=== PATIENT | female | born 1970 | race African-American/Black ===

== ENCOUNTER → 2016-05-18 | Outpatient (CLI) | payer MEDICARE ==
[~2016-05-18] MED LIST: AMLO10TA4 PO; LEVO50TA5 PO; METH-38 PO; OMEP20CA9 PO; OXYC-323 PO; SENN1TAB7 PO; TAPE100T3 PO; ZOLP10TA PO
[2016-05-18 12:21] LABS: ALBUMIN 3.8 g/dL (3.4-5.0); ALBUMIN/GLOBULIN RATIO 0.9 (1.0-1.7); CALCIUM 9.4 mg/dL (8.5-10.1); CREATININE 0.6 mg/dL (0.6-1.0); GFR 129.7; POTASSIUM 4.2 mmol/L (3.5-5.1); TOTAL BILIRUBIN 0.3 mg/dL (0.2-1.0); TOTAL PROTEIN 8.2 g/dL (6.4-8.2)
[2016-05-18 12:45] LABS: BASO % 1 % (0-3); EOS % 1 % (0-3); HEMATOCRIT 41.2 % (36.0-47.0); HEMOGLOBIN 13.6 g/dL (12.0-15.5); LYMPH # 2.3 x10^3/uL (1.0-4.8); LYMPH % 39 % (24-48); MEAN CORPUSCULAR HEMOGLOBIN 31 pg (25-35); MEAN CORPUSCULAR HGB CONC 33 g/dL (31-37); MEAN CORPUSCULAR VOLUME 92 fL (79-100); MONO % 8 % (0-9); NEUT % 51 % (31-73); PLATELET COUNT 269 x10^3/uL (140-400); RED BLOOD COUNT 4.47 x10^6/uL (3.50-5.40)
[2016-05-18 12:56] LABS: PROTHROMBIN TIME PATIENT 12.5 SEC (11.7-14.0)
== END | disposition home or self-care (01) ==
LOC: SURGPAT 11:05
PROVIDERS: ATTEND Neurological Surgery
DX: M54.5 Low back pain (principal)
CPT/HCPCS: 36415; 80053; 85027; 85610; 85730; 87641

== ENCOUNTER 2016-05-23 06:57 | Day surgery (SDC) | payer MEDICARE ==
[~2016-05-23 06:57] MED LIST changes: +BACITRACIN 50,000 UNIT in IV NORMAL SALINE 1000ML BAG 1,000 ML IRR ONE; +CEFAZOLIN 2GM PREMIX 50 ML IV PRN; -METH-38 PO; -OXYC-323 PO; -SENN1TAB7 PO
[2016-05-23] MEDS ORDERED: LIDOCAINE 1% 1 ML SYRINGE. ID PRN (07:00)
[2016-05-23] MEDS ORDERED: ONDANSETRON PF 4 MG/2 ML VIAL. IV PRN (07:00)
[2016-05-23] MEDS ORDERED: FENTANYL PF 100 MCG/2 ML VIAL. IV PRN (07:00)
[2016-05-23] MEDS ORDERED: IV RINGERS,LACTATED 1000ML 1,000 ML IV SCH (07:00)
[2016-05-23] MEDS ORDERED: MORPHINE SULFATE 2 MG/ML DISP.SYRIN. IV PRN (07:00)
[2016-05-23] MEDS ORDERED: PROCHLORPERAZINE 10 MG/2 ML VIAL. IV PRN (07:00)
[2016-05-23] MEDS ORDERED: HYDROMORPHONE 2 MG/ML VIAL. IV PRN (07:00)
[2016-05-23] MEDS ORDERED: BUPIVACAINE MPF 0.5% 30 ML VIAL. ONE (07:12)
[2016-05-23] MEDS ORDERED: LIDOCAINE 1%/EPI 1:100,000 20 ML VIAL. ONE (07:12)
[2016-05-23] MEDS ORDERED: THROMBIN 20,000 UNIT SPRAY.SYRN KIT TP ONE (07:12)
[2016-05-23] MEDS ORDERED: GELATIN SPONGE SIZE 100. ONE (07:12)
[2016-05-23] MEDS ORDERED: HYDROCORTISONE SOD SUCC/PF 100 MG/2 ML VIAL. ONE (08:09)
[2016-05-23] MEDS ORDERED: MIDAZOLAM HCL/PF 2 MG/2 ML VIAL. ONE (08:11)
[2016-05-23] MEDS ORDERED: GLYCOPYRROLATE 1 MG/5 ML VIAL. ONE (08:12)
[2016-05-23] MEDS ORDERED: REMIFENTANIL 2 MG VIAL. IV ONE (08:12)
[2016-05-23] MEDS ORDERED: ONDANSETRON PF 4 MG/2 ML VIAL. ONE (08:16)
[2016-05-23] MEDS ORDERED: PROPOFOL 50 ML IV ONE ×2 (08:16→10:02)
[2016-05-23] MEDS ORDERED: DEXAMETHASONE SOD PHOS 20 MG/5 ML VIAL. ONE (08:16)
[2016-05-23] MEDS ORDERED: PHENYLEPHRINE 10 MG/ML VIAL. ONE ×2 (08:16→10:15)
[2016-05-23] MEDS ORDERED: ROCURONIUM 50 MG/5 ML VIAL. ONE (08:16)
[2016-05-23] MEDS ORDERED: ISOFLURANE > 120 MINUTES. IH ONE (08:16)
[2016-05-23] MEDS ORDERED: LIDOCAINE 2% 100 MG/5 ML SYRINGE. ONE (08:16)
[2016-05-23] MEDS ORDERED: PROPOFOL 20 ML IV ONE (08:16)
[2016-05-23] MEDS ORDERED: ESMOLOL 100 MG/10 ML VIAL. IV ONE (09:06)
[2016-05-23] MEDS ORDERED: 0.9 % SODIUM CHLORIDE 50 ML VIAL. IJ ONE (11:02)
[2016-05-23] MEDS ORDERED: REMIFENTANIL 1 MG VIAL. IV ONE (11:02)
--- NOTE | 2016-05-23 11:49 | PDOC ---
BRIEF OPERATIVE NOTE Date: May 23, 2016 Pre-Op Diagnosis lumbar disk herniation, lumbar radiculopathy Post-Op Diagnosis same Procedure Performed left L5-S1 hemilaminotomy and discectomy Surgeon Bertin Sales Representative [employer] none Anesthesia Type: General Blood Loss 25mL Specimens Obtained disk and decompression Findings prominent disk herniation L5-S1 Complications none apparent Additional Remarks neuromonitoring improved compared to baseline at completion of procedure JOYCE BORRERO MD May 23, 2016 11:49
[2016-05-23] MEDS ORDERED: FENTANYL PF 100 MCG/2 ML VIAL. ONE (11:53)
[2016-05-23] MEDS: FENTANYL PF 100 MCG/2 ML VIAL. IV PRN ×2 (12:19→12:29)
[2016-05-23] MEDS ORDERED: ACETAMINOPHEN INTRAVENOUS 100 ML IV ONE (12:30)
[2016-05-23] MEDS ORDERED: OXYCODONE/APAP 5/325 TABLET. PO ONE (13:00)
[2016-05-23 13:23] VITALS: BP 128/77
[2016-05-23] MEDS ORDERED: OXYC-323 PO (13:28)
[2016-05-23] MEDS ORDERED: METH-38 PO (13:29)
[2016-05-23] MEDS ORDERED: SENN1TAB7 PO (13:30)
--- NOTE | 2016-05-23 14:22 | OP ---
DATE OF SURGERY: 05/23/2016 SURGEON: Sonny Borrero M.D. [employer] CERT[employer]IED [employer]WORK PROFESSIONAL: None. PREOPERATIVE DIAGNOSES: Lumbosacral herniated disk with concordant radiculopathy and lumbar spondylosis. POSTOPERATIVE DIAGNOSES: Lumbosacral herniated disk with concordant radiculopathy and lumbar spondylosis. PROCEDURE: Left lumbar 5 and sacral 1 hemilaminotomy with diskectomy with intraoperative neuromonitoring, intraoperative use of microscope. ANESTHESIA: General. COMPLICATIONS: None intraprocedurally. INDICATIONS FOR THE PROCEDURE: The patient is a pleasant 45-year-old female, who has developed significant left lower extremity pain localized to disk herniation at lumbar 5 and sacral 1. She has been refractory to multiple nonsurgical treatments including therapy as well as injections by pain management. Please refer to the chart for additional details. DESCRIPTION OF PROCEDURE: After informed consent was obtained, the patient was brought to the operating room, was placed under general anesthesia. She was placed in the prone position on the Alfonso frame. All pressure points were checked and padded appropriately. Neuromonitoring was instituted and baseline potentials were obtained including somatosensory blood potentials. The lumbar region was prepped and draped in usual sterile fashion. Appropriate incision location was localized with fluoroscopy and subsequently a vertical incision centered over the region of lumbar 5 and sacral 1 was made with a 10 blade scalpel. Monopolar electrocautery was utilized to dissect the avascular midline to the spinous processes of lumbar 5 and sacral 1 and leftward across the lamina at this location. Level was verified with fluoroscopy prior to the initiation of decompression. A left hemilaminotomy was performed at lumbar 5, sacral 1 utilizing a pneumatic drill as well as a Kerrison rongeur. The underlying ligament was gently dissected away from the thecal sac with a blunt nerve hook as well as a Michele and removed with a Kerrison rongeur. The thecal sac and the adjacent nerve root were better identified. There was significant prominent annulus noted at the location of the L5 and S1 disk. The neural elements were gently retracted medially and an annulotomy was performed at the disk space at lumbar 5 and sacral 1 with an 11 blade scalpel. Disk material emerged under pressure and there was an additional disk material that was teased posterolaterally into lateral recesses with blunt nerve hook and subsequently removed with a pituitary rongeur. Additional disk material was gently teased from the center portion of the annulus after plane was developed between the anterior thecal sac and the annulus with the Michele. Additional disk material was gently teased posterolaterally in this fashion and removed with pituitary rongeur. Region was inspected with direct visualization as well as gentle palpation with a Michele and a blunt nerve hook to verify adequate decompression upon completion of the diskectomy. Once the adjacent neural elements were noted to be well decompressed utilizing these techniques, it was also noted that neuromonitoring potentials were slightly improved compared to baseline. After decompression diskectomy was complete, the wound was generously irrigated with antibiotic irrigation. Pristine hemostasis was achieved with FloSeal, cottonoids, some use of irrigation as well as some use of bipolar electrocautery. The muscles and the fascia were then reapproximated with 0 Vicryl in a simple interrupted fashion. Subcutaneous tissues reapproximated with 2-0 Vicryl in an interrupted inverted fashion. Skin was reapproximated with 4-0 Vicryl in a running subcuticular fashion. Mastisol and Steri-Strips were applied and the wound was dressed with Telfa and Tegaderm. At the end the procedure, all needle and sponge counts correct x 2. The patient was extubated in the operating room and taken to recovery in stable condition. There were no intraprocedural complications apparent. SONNY BORRERO MD DR: EMIL/alistair JOB#: [id number] / [id number]
== END 2016-05-23 14:00 | disposition home or self-care (01) ==
LOC: SURG 06:57
PROVIDERS: ATTEND Neurological Surgery
DX: M51.16 Intervertebral disc disorders with radiculopathy, lumbar region (principal); M47.26 Other spondylosis with radiculopathy, lumbar region; I10 Essential (primary) hypertension; E66.9 Obesity, unspecified; E03.9 Hypothyroidism, unspecified; Z90.710 Acquired absence of both cervix and uterus
CPT/HCPCS: 63030; 76000; J0131; J0690; J0780; J1100; J1720; J2250; J2405; J2704; J3010; J3490; J7030

== ENCOUNTER → 2016-08-31 | Outpatient (CLI) | payer MEDICARE ==
[~2016-08-31] MED LIST changes: -BACITRACIN 50,000 UNIT in IV NORMAL SALINE 1000ML BAG 1,000 ML IRR ONE; -CEFAZOLIN 2GM PREMIX 50 ML IV PRN; +GADOBUTROL 10 MMOL/10 ML VIAL IV ONE; +METH-38 PO; +OXYC-323 PO; +SENN1TAB7 PO; -TAPE100T3 PO; +TAPE100T7 PO
--- NOTE | 2016-08-31 11:49 | KCIC ---
MRI Lumbar Spine without and with contrast History: Low back pain, previous surgery May 2016, left radiculopathy, left buttock pain Technique: Multiplanar, multi sequential pre and postcontrast MR imaging was performed of the lumbar spine. Contrast: 10 cc Gadavist Comparison: None Findings: Lumbar vertebral body stature is preserved. There is mild to moderate degenerative disc disease L5-S1. There is mild L5-S1 endplate edema, no fluid in the intervertebral disc space. There is no enhancement in the central intervertebral disc spaces. Conus terminates at the inferior aspect of L2. There is no nodular enhancement of the conus or cauda equina. AP alignment is adequate. L2-L3: Neural foramina and spinal canal are adequate. L3-L4: There is moderate facet hypertrophic change. There is prominence of posterior epidural fat and mild buckling of the ligamentum flavum. Spinal canal and neural foramina are adequate. L4-L5: There is prominence of posterior epidural fat, mild buckling of the ligamentum flavum, and mild facet hypertrophic change. Spinal canal is adequate. There is a shallow protrusion in the proximal right extraforaminal region without significant impingement of the exiting right L4 nerve root. Neural foramina are overall adequate. L5-S1: There is a shallow posterior central protrusion without significant impingement of the descending S1 nerve roots. There is postsurgical defect of the far left lateral lamina and facet with associated enhancing fibrosis which extends about the exiting left L5 nerve root in the neural foramen, effacement of perineural fat about the posterior and inferior aspect of the exiting left L5 nerve root. There is no displacement descending S1 nerve roots. There is mild facet hypertrophic change bilaterally. Right neural foramen is adequate. Impression: 1. There is enhancing fibrosis at site of postsurgical defect of the far left lateral lamina and facet at L5-S1, enhancing fibrosis extending about the posterior and inferior aspect of the exiting left L5 nerve root at this level. There is no significant lumbar spinal stenosis. 2. There is [id number] degenerative disc disease at L5-S1. Mild endplate edema at this level is likely reactive/degenerative in etiology. Electronically signed by: Dakota Romero MD (08/31/2016 11:46 AM) [facility]
== END | disposition home or self-care (01) ==
LOC: KCIC MRI 10:12
PROVIDERS: ATTEND Neurological Surgery
DX: M51.37 Other intervertebral disc degeneration, lumbosacral region (principal)
CPT/HCPCS: 72158; A9585

== ENCOUNTER → 2016-10-23 | Outpatient (CLI) | payer MEDICARE ==
[~2016-10-23] MED LIST changes: +CYCL10TA2 PO; +ESTR42.53 VG; +GABA-586 PO; -GADOBUTROL 10 MMOL/10 ML VIAL IV ONE; +IOHEXOL 180 MG/ML 10 ML VIAL. ONE; +OXYC1TAB9 PO; +VALS160T3 PO; +methylPREDNISolone ACETATE 40 MG/ML VIAL. ONE; +methylPREDNISolone ACETATE 80 MG/ML VIAL. ONE
--- NOTE | 2016-10-23 19:07 | PAIN ---
DATE OF SERVICE: 10/23/2016 INITIAL CONSULTATION FOR PAIN CLINIC DATE OF SERVICE: 10/23/2016. CHIEF COMPLAINT: Low back and bilateral lower extremity pain. HISTORY OF PRESENT ILLNESS: The patient is a 45-year-old female who presents with history of pain since August of this year; she stepped off a curb and rodolfo her back when she stepped down on her right side. The patient reports she has had pain in her back since that time radiating to both bilateral lower extremities, in the posterior gluteus, posterior thighs, posterior calf, anterior thighs, medial calf, anterior calf to the feet; again, somewhat worse on the right than the left, but present bilaterally. The patient reports she had a lumbar laminectomy in May of this year and did very well with this, but the pain had been almost completely gone with only little numbness here and there, until she stepped off a curb in August. The patient reports now the pain is worse while driving the car, worse with activity, worse at night, hard to get up and change positions, shooting pain into the legs and buttocks, constant, sharp, stabbing, throbbing, shooting, radiating numbness, and changes during the day, primarily worse at night, but burning, cramping, aching as well. The patient did have a repeat MRI scan showing enhancing fibrosis at the site of post-surgical defect of the far left lateral lamina and facet at L5-S1 with enhancing fibrosis extending the posterior inferior aspect of the exiting L5 nerve root at this level, but without significant lumbar stenosis, mild to moderate degenerative disk disease at L5-S1 as well. With L4-L5 shows a shallow protrusion in the proximal right extraforaminal region without significant impingement of the exiting right L4 nerve root as well. The patient reports it awakens her from sleep about 6 times a night. She is not sleeping well at all. It significantly has inhibited her ability to walk. She has been using a cane occasionally, but does not have one with her today. The patient reports it affects her bowel and bladder control too, but no incontinence. She reports disability rate from 0-10, 10 being the worst, is at 9 with family and home responsibilities, social activity, recreation, self-care; 10 with occupation, sexual behavior and life support activities. The patient has had previous physical therapies, chiropractic treatment, exercises which she is currently doing, counseling as well. All these within the last year or right after her surgery without significant improvement. At this time, she is taking gabapentin, cyclobenzaprine as well as oxycodone, all of which do help to a moderate extent, mostly the oxycodone. The patient reports no loss of motor function, but again significant fatigability, especially in the right leg. PAST MEDICAL HISTORY: Significant for hypertension, asthma, hypothyroidism, glaucoma, arthritis, gastroesophageal reflux. PREVIOUS SURGERY: Includes laparoscopic cholecystectomy, lumbar diskectomy, hysterectomy, x 2, and bilateral carpal tunnel repair in the past. CURRENT MEDICATION LIST: Includes gabapentin, oxycodone, Ambien, levothyroxine, amlodipine, valsartan, estradiol and Flexeril. ALLERGIES: THE PATIENT IS ALLERGIC TO SULFA AND CELEBREX. FAMILY HISTORY: Significant for heart disease, thyroid disease, and cancers. SOCIAL HISTORY: The patient does not smoke, does not drink alcohol, is , lives with her spouse, lives in [place], [place] and was recently laid off secondary to her pain situation and missing work secondary to physical therapy appointments, etc. 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 REVIEW OF SYSTEMS: The patient's review of systems is positive for those items mentioned in history of present illness. All systems reviewed and otherwise negative. It is complete, full and well documented on the patient's chart. PHYSICAL EXAMINATION: VITAL SIGNS: The patient's blood pressure is 146/105, pulse 91, respirations 18, temperature 98.1 degrees Fahrenheit. Height is 5 feet 5 inches, weight is 240 pounds. GENERAL: The patient is awake, alert, oriented, appropriate, very pleasant demeanor. HEENT: Head shows normocephalic, atraumatic. Extraocular movements are intact and symmetrical. Oral cavity: Mucous membranes moist and pink. Dentition is intact. NECK: Anterior throat supple without palpable lymphadenopathy noted. Swallow reflex is symmetrical. CHEST: Normal on inspection. Breath sounds clear to auscultation bilaterally. HEART: S1 and S2 clear. ABDOMEN: Soft, nontender, nondistended. No palpable organomegaly. There is no rebound or guarding demonstrated. BACK: Spine grossly in the midline. Normal-appearing thoracic kyphosis and lumbar lordotic curvature. Lumbar paraspinous musculature is symmetrical on inspection. The patient shows a well-healed surgical scar in the midline in the lumbar distribution. Paraspinous musculature shows moderate tenderness with palpation, but only diffusely in the lower lumbar distribution as well as some in the mid distribution on the right more than left. The patient's back shows good rotational motion both laterally greater than 10 degrees right and left as well as extension greater than 10 degrees, forward flexion greater than 45 degrees without significant pain reported. The patient shows no tenderness over the sacrum or the sacroiliac regions as well as over the spinous processes on palpation. The patient's lower extremities showed deep tendon reflexes at 2+ in the patellar, 1+ tendo-calcaneus tendons, are equal. Motor exam is strong with 5/5 dorsiflexion, extension, quadriceps and hamstring flexion and are symmetrical. Peripheral pulses are 2+ posterior tibial and dorsalis pedis pulses. No peripheral edema is noted. No clubbing, no cyanosis. Lower extremities are warm and dry to touch, equal in color and appearance. Straight leg raise noted to be positive on the left at about 45 degrees, but it is decreased with knee flexion; right side is negative. Gaenslen's and Uziel's maneuvers are negative bilaterally as well. The patient is able to stand, but has some difficulty standing from a sitting position needs to hold on the arms of the chair, was walking with a normal-appearing gait; however, for a short distance in the office without significant antalgic gait or favoring the right or left lower extremity. IMPRESSION: 1. This is a 45-year-old female with a history of recent lumbar laminectomy and doing very well afterwards and then with stepping off a curb with significant pain in the back and bilateral lower extremities in a radicular fashion. 2. MRI scan of lumbar spine as noted. 3. Arthritis. 4. Hypertension. PLAN: Options were discussed with the patient including conservative medical management, physical therapy, interventional techniques and she would like to pursue interventional techniques. We discussed a caudal approach epidural steroid injection using description as well as anatomical models to describe the procedure. Risks were then discussed including, but not limited to bleeding, infection, possibility of epidural hematoma and subsequent neurological compromise, dural puncture, headaches, spinal cord and/or nerve damage, side effects of steroid medication and poor results regarding pain control. The patient understands and wishes to proceed. The patient will return to the clinic in approximately 2 weeks for followup, was counseled on return appointment, activity level and side effects to be aware of. Also discussed activity level with the patient and encouraged her to increase this as tolerated, stretching and strengthening exercises as well at home. Also, we will follow up with her primary physician regarding her blood pressure. DIAGNOSIS: Lumbar radiculopathy with lumbar degenerative disk disease and post-lumbar laminectomy syndrome. PROCEDURE: Caudal approach epidural steroid injection using C-arm fluoroscopic guidance under sterile prep and drape using local anesthetic. MEDICATIONS INJECTED: A total of 120 mg Depo-Medrol plus total of 10 mL of preservative-free normal saline and 2 mL of Isovue for contrast. CONDITION AT DISCHARGE: Stable. The patient tolerated procedure well, had no complications. ISIAH HILL MD DR: SHAYY/alistair JOB#: [id number] / [id number] SOL Ly
== END | disposition home or self-care (01) ==
LOC: PNCL 10:07
PROVIDERS: ATTEND Anesthesiology
DX: M51.16 Intervertebral disc disorders with radiculopathy, lumbar region (principal); M96.1 Postlaminectomy syndrome, not elsewhere classified; I10 Essential (primary) hypertension; J45.909 Unspecified asthma, uncomplicated; E03.9 Hypothyroidism, unspecified; K21.9 Gastro-esophageal reflux disease without esophagitis; M19.91 Primary osteoarthritis, unspecified site; H40.9 Unspecified glaucoma; Z90.710 Acquired absence of both cervix and uterus; Z88.2 Allergy status to sulfonamides; Z88.8 Allergy status to other drugs, medicaments and biological substances; Z90.49 Acquired absence of other specified parts of digestive tract
CPT/HCPCS: 62323; J1030; J1040

== ENCOUNTER → 2016-11-06 | Outpatient (CLI) | payer MEDICARE ==
--- NOTE | 2016-11-06 17:10 | PAIN ---
DATE OF SERVICE: 11/06/2016 DIAGNOSES: Lumbar radiculopathy with lumbar degenerative disk disease and post-lumbar laminectomy syndrome. HISTORY OF PRESENT ILLNESS: The patient is a 45-year-old female who returns for followup status post caudal epidural steroid injection x 1. The patient reports no significant improvement overall with her pain, still pain in the low back, mostly in the left side radiating to bilateral lower extremities, pulling and burning pain, cramping and weakness in the left foot especially. The patient reports a sharp, tight, shooting, cramping, burning, can be stabbing, severe, constant, radiating. The patient reports it is a 10 on a scale of 10 on usual and the least has been is a 9 in the last few weeks. The patient reports no new motor or sensory deficits, no new bowel or bladder incontinence or other complaints. PHYSICAL EXAMINATION: VITAL SIGNS: Today, the patient's blood pressure 154/98, pulse 71, respirations 18, temperature is 97.8 degrees Fahrenheit, height is 5 feet 5 inches, weight is 236 pounds. GENERAL: The patient is awake, alert, oriented, appropriate, very pleasant demeanor. HEENT: Head shows normocephalic, atraumatic. Extraocular movements are intact and symmetrical. Oral cavity, mucous membranes are moist and pink. Dentition is intact. NECK: Shows anterior throat supple. CHEST: Shows breath sounds clear to auscultation bilaterally. HEART: Shows S1 and S2 clear. ABDOMEN: Obese, soft, nontender, nondistended. MUSCULOSKELETAL: Back shows spine grossly in the midline. Lumbar paraspinous musculature shows symmetrical. There is a well-healed surgical scar again appreciated, with palpation shows some moderate tenderness with palpation still in the middle and lower distribution of paraspinous musculature bilaterally, diffusely without radiation, but significantly tender. No trigger points, no tenderness over the sacrum or sacroiliac regions. Lower extremities showed deep tendon reflexes at 2+ in the patellar, 1+ tendo-calcaneus tendons. Motor exam is strong with 5/5 dorsiflexion and extension. Peripheral pulses are 1+ posterior tibial. No peripheral edema is noted bilaterally. PLAN: Options were discussed with the patient and the patient's old chart was reviewed as her current medication regimen and updated. Current review of systems updated today as well. We will proceed with a second caudal approach epidural steroid injection today with fluoroscopic guidance. Risks were again discussed including, but not limited to bleeding, infection, possibility of epidural hematoma and subsequent neurological compromise, dural punctures, headaches, spinal cord and/or nerve damage, side effects of steroid medication and poor results regarding pain control. The patient understands and wishes to proceed. The patient will return to clinic in approximately 2 weeks for a followup, was counseled on return appointment, activity level and side effects to be aware of. DIAGNOSES: Lumbar radiculopathy with lumbar post-laminectomy syndrome and degenerative disk disease. PROCEDURE: Caudal approach epidural steroid injection using C-arm fluoroscopic guidance under sterile prep and drape using local anesthetic. MEDICATIONS INJECTED: Total of 120 mg Depo-Medrol plus 10 mL preservative-free normal saline and 2 mL of Isovue for contrast. CONDITION AT DISCHARGE: Stable. The patient tolerated procedure well, had no complications. ISIAH HILL MD DR: SHAYY/alistair JOB#: [id number] / [id number]
== END | disposition home or self-care (01) ==
LOC: PNCL 08:52
PROVIDERS: ATTEND Anesthesiology
DX: M51.16 Intervertebral disc disorders with radiculopathy, lumbar region (principal); M96.1 Postlaminectomy syndrome, not elsewhere classified; Z88.2 Allergy status to sulfonamides; Z88.8 Allergy status to other drugs, medicaments and biological substances
CPT/HCPCS: 62323; J1030; J1040

== ENCOUNTER → 2016-11-20 | Outpatient (CLI) | payer MEDICARE ==
--- NOTE | 2016-11-20 11:01 | PAIN ---
DATE OF SERVICE: 11/20/2016 PROGRESS NOTE FOR PAIN CLINIC DIAGNOSES: Lumbar radiculopathy with lumbar degenerative disk disease and post-lumbar laminectomy syndrome. HISTORY OF PRESENT ILLNESS: The patient is a 45-year-old female who returns for followup status post caudal approach epidural steroid injections x 2. The patient reports about 50% improvement overall for about the first one to two weeks. The patient reports that the pain has been returning, however, in the low back, little more on the left side than the right, now with some radiation to the posterior gluteus bilaterally and into the left leg, posterior thigh, posterior calf into the foot with some spasms and cramping as well. The patient reports pain is a 9 on a scale of 10 at its worst, average about 8 and at least is about 7. The patient reports is aching, sharp, dull, shooting, tight, cramping, stabbing, burning, tingling, radiating, constant, severe, unbearable but on and off. The patient reports is not present at all times, worse with standing and walking, better with lying down but awakens her from sleep occasionally. She bed and get back into bed and she is able to get back to sleep. The patient reports no new motor or sensory deficits and no new bowel or bladder incontinence or other complaints. PHYSICAL EXAMINATION: VITAL SIGNS: The patient's blood pressure 149/95, pulse 79, respirations 18, temperature is 98.0 degrees Fahrenheit, height is 5 feet 5 inches and weight is 240 pounds. GENERAL: The patient is awake, alert, oriented, appropriate and very pleasant demeanor. HEENT: Head shows normocephalic and atraumatic. Extraocular movements are intact and symmetrical. Oral cavity, mucous membranes are moist and pink. Dentition is intact. NECK: Shows anterior throat supple without palpable lymphadenopathy noted. Swallow reflex is symmetrical. CHEST: Shows normal on inspection. Breath sounds are clear to auscultation bilaterally. HEART: Shows S1 and S2 clear. ABDOMEN: Obese, soft, nontender and nondistended. No palpable organomegaly is noted. No rebound or guarding demonstrated. BACK: Shows spine grossly in the midline. Lumbar paraspinous musculature shows some moderate tenderness with palpation. Again, well healed surgical scars noted in the midline. No radiation of pain. The patient shows no tenderness over the sacrum or sacroiliac regions. The patient shows good rotation and motion of lower lumbar spine, both laterally as well as extension and flexion. EXTREMITIES: Lower extremities show deep tendon reflexes 2+ in the patellar, 1+ tendo-calcaneus tendons, are equal. Motor exam is strong with 5/5 dorsiflexion, extension, quadriceps and hamstring flexion and symmetrical. Peripheral pulses are 1+ posterior tibia. No peripheral edema is noted. Options were discussed with the patient and the patient's old chart was reviewed as her current medication regimen updated. Current review of systems updated today as well. We will hold on further injections at this time as she would like to increase her activity. She [facility] and encouraged her to increase the activity with this, which may afford some weight loss as well as strengthening and stretching exercises, which she has been doing. We will increase this for next few weeks and see how she does. If still significant pain in the low back and especially in the left lower extremity, we will have her return for a third caudal approach epidural steroid injection. The patient understands and agrees and we will increase activity as described and we will follow up as scheduled. ISIAH HILL MD DR: SHAYY/alistair JOB#: [id number] / [id number]
== END | disposition home or self-care (01) ==
LOC: PNCL 08:55
PROVIDERS: ATTEND Anesthesiology
DX: M51.16 Intervertebral disc disorders with radiculopathy, lumbar region (principal)
CPT/HCPCS: G0463; J1030; J1040

== ENCOUNTER → 2016-12-07 | Outpatient (CLI) | payer MEDICARE ==
--- NOTE | 2016-12-07 09:00 | PAIN ---
DATE OF SERVICE: 12/07/2016 DIAGNOSES: Lumbar radiculopathy with lumbar degenerative disk disease and post-lumbar laminectomy. HISTORY OF PRESENT ILLNESS: The patient is a 45-year-old female who returns for followup status post caudal epidural steroid injections x 2. The patient reports she is doing better, about 50% overall, and she is still doing some water therapy, which she feels is beneficial as well about twice a week. The patient reports still significant pain, however, in the low back, bilateral lower extremities, worse on the left than the right at this time with radiating pain, tingling, burning, cramping, stabbing, aching, sharp, dull, tight, shooting, severe, constant, radiating, becomes unbearable at times, worse with walking, standing and weightbearing, better with lying down, but does wake her from sleep about 2-3 times at night. The patient has to reposition or take pain medications to get over the pain. The patient has been taking Percocet with good results and without significant side effects. PHYSICAL EXAMINATION: VITAL SIGNS: The patient's blood pressure 150/105, pulse is 84, respirations 18, temperature 97.9 degrees Fahrenheit, height 5 feet 5 inches, weighs 241 pounds. GENERAL: The patient is awake, alert, oriented, appropriate, very pleasant demeanor. HEENT: Shows normocephalic, atraumatic. Extraocular movements are intact and symmetrical. Oral cavity shows mucous membranes are moist and pink. Dentition is intact. NECK: Shows anterior throat supple without palpable lymphadenopathy noted. Swallow reflex is symmetrical. CHEST: Shows normal on inspection. Breath sounds clear to auscultation bilaterally. HEART: Shows S1 and S2 clear. No murmurs auscultated. ABDOMEN: Soft, nontender, nondistended. No palpable organomegaly, no rebound or guarding demonstrated. BACK: Shows spine grossly midline. Lumbar, flattening of lumbar lordotic curvature with a well-healed surgical scar noted. Lumbar paraspinous musculature shows symmetrical on inspection, with palpation shows moderate tenderness only in the low lumbar distribution, only diffusely without radiation. LOWER EXTREMITIES: Showed deep tendon reflexes 2+ in the patellar, 1+ in calcaneus tendons are equal. Motor exam is 5/5 with dorsiflexion, extension, quadriceps and hamstring flexion and symmetrical. Options were discussed with the patient, and the patient's old chart was reviewed as her current medication regimen updated. Current review of systems updated today as well. We will proceed with a caudal epidural steroid injection today with fluoroscopic guidance, the third in the series. Risks were again discussed including, but not limited to bleeding, infection, possibility of epidural hematoma, subsequent neurologic compromise, dural puncture, headaches, spinal cord and/or nerve damage, side effects of steroid medication and poor results regarding pain control. The patient understands and wishes to proceed. The patient will return to clinic in approximately 2 weeks for followup, was counseled on return appointment as well as side effects to be aware of. The patient also requested a refill of her Percocet. We will refill this one additional prescription today, also change her gabapentin to Lyrica as we discussed this in the past as well and have her follow up with her primary care physician regarding any future medications as well as to recheck her blood pressure as it was elevated again today. DIAGNOSES: Lumbar radiculopathy with degenerative disk disease post-thrombotic syndrome. PROCEDURE: Caudal approach epidural steroid injection with C-arm fluoroscopic guidance under sterile prep and drape using local anesthetic. MEDICATION INJECTED: A total of 120 mg Depo-Medrol, plus 10 mL of preservative-free normal saline and 2 mL of Isovue for contrast. CONDITION AT DISCHARGE: Stable. The patient tolerated procedure well, had no complications. ISIAH HILL MD DR: SHAYY/alistair JOB#: [id number] / [id number]
== END | disposition home or self-care (01) ==
LOC: PNCL 07:49
PROVIDERS: ATTEND Anesthesiology
DX: M51.16 Intervertebral disc disorders with radiculopathy, lumbar region (principal); Z88.2 Allergy status to sulfonamides; Z88.8 Allergy status to other drugs, medicaments and biological substances
CPT/HCPCS: 62323; J1030; J1040

== ENCOUNTER → 2017-01-07 | Outpatient (CLI) | payer MEDICARE ==
[~2017-01-07] MED LIST changes: +ESTR1PAT TD; -IOHEXOL 180 MG/ML 10 ML VIAL. ONE; +OXYC10TA PO; +PREG100C PO; +PROVENTIL HFA6.7 GM IH; -methylPREDNISolone ACETATE 40 MG/ML VIAL. ONE; -methylPREDNISolone ACETATE 80 MG/ML VIAL. ONE
--- NOTE | 2017-01-07 12:39 | KCIC ---
EXAM: Lumbar spine MRI without contrast. HISTORY: Lumbar radiculopathy. TECHNIQUE: Multiplanar, multisequence magnetic resonance imaging of the lumbar spine was performed without contrast. COMPARISON: 08/31/2016 FINDINGS: There is no listhesis. The vertebral bodies are normal in height. There is degenerative endplate remodeling with disc space narrowing and disc desiccation at L5-S1. There are small endplate Schmorl's nodes at this level. There is also endplate remodeling and disc desiccation at L4-L5. No suspicious osseous lesion is seen. The conus terminates at L2. At L1-L2 and L2-L3 there is no stenosis. At L3-L4, there is endplate remodeling. There is no stenosis. At L4-L5, there is a disc bulge and endplate remodeling. There is mild bilateral facet arthropathy. There is no stenosis. At L5-S1, there is a posterior central disc protrusion and left foraminal to extra foraminal disc protrusion with 5 mm superior extrusion superimposed on a diffuse disc bulge and endplate remodeling. There is mild left foraminal stenosis with abutment of the exiting left L5 nerve root. There is effacement of the left lateral recess with deviation of the traversing left S1 nerve root. There are partial left laminectomy changes at this level. IMPRESSION: 1. L5-S1: Slight interval increase in a posterior central disc protrusion and left foraminal to extra foraminal disc protrusion with superior extrusion, resulting in mild left foraminal stenosis and abutment of the exiting left L5 nerve root and effacement of the left lateral recess with deviation of the traversing left S1 nerve root. There are partial laminectomy changes at this level. The previously demonstrated enhancing scar/granulation tissue is difficult to assess in the absence of intravenous contrast on the current exam. 2. Minimal degenerative change throughout the remainder of the lumbar spine, without significant stenosis. Electronically signed by: Demi Bonilla MD (01/07/2017 12:36 PM) [email or web address]
== END | disposition home or self-care (01) ==
LOC: KCIC MRI 11:22
PROVIDERS: ATTEND Neurological Surgery
DX: M51.16 Intervertebral disc disorders with radiculopathy, lumbar region (principal); M48.061 Spinal stenosis, lumbar region without neurogenic claudication
CPT/HCPCS: 72148

== ENCOUNTER 2017-02-20 07:01 | Observation (INO) | payer MEDICARE ==
[~2017-02-20 07:01] MED LIST changes: -AMLO10TA4 PO; -CYCL10TA2 PO; +DEXAMETHASONE SOD PHOS 20 MG/5 ML VIAL.; -ESTR1PAT TD; -ESTR42.53 VG; -GABA-586 PO; +GELATIN SPONGE SIZE 100.; +HYDROmorphone 2 MG/ML VIAL IV; -LEVO50TA5 PO; +LIDOCAINE 1% PF 2 ML VIAL. ID; +LIDOCAINE 2% PF Vial for OR 5 ML VIAL.; -METH-38 PO; -OMEP20CA9 PO; +ONDANSETRON PF 4 MG/2 ML VIAL.; +ONDANSETRON PF 4 MG/2 ML VIAL. IV; -OXYC-323 PO; -OXYC10TA PO; -OXYC1TAB9 PO; -PREG100C PO; +PROCHLORPERAZINE 10 MG/2 ML VIAL. IV; +PROPOFOL 20 ML IV; -PROVENTIL HFA6.7 GM IH; +ROCURONIUM 50 MG/5 ML VIAL.; -SENN1TAB7 PO; -TAPE100T7 PO; +THROMBIN TOPICAL 20,000 UNIT SPRAY.SYRN KIT TP; -VALS160T3 PO; -ZOLP10TA PO; +fentaNYL PF VIAL 100 MCG/2 ML VIAL IV
[2017-02-20] MEDS ORDERED: fentaNYL PF VIAL 100 MCG/2 ML VIAL ×2 (08:14)
[2017-02-20] MEDS ORDERED: ePHEDrine PF IN SALINE 50 MG/5 ML DISP.SYRIN IV (08:14)
[2017-02-20] MEDS ORDERED: REMIFENTANIL 2 MG VIAL. IV ×2 (08:14)
[2017-02-20] MEDS ORDERED: MIDAZOLAM HCL/PF 2 MG/2 ML VIAL. ×2 (08:14)
[2017-02-20] MEDS ORDERED: SUCCINYLCHOLINE 200 MG/10 ML VIAL. ×2 (08:17)
[2017-02-20] MEDS: BUPIVACAINE MPF 0.5% 30 ML VIAL. ×2 (09:28)
[2017-02-20] MEDS: BACITRACIN 50,000 UNIT in IV NORMAL SALINE 1000ML BAG 1,000 ML IRR (09:28)
[2017-02-20] MEDS: LIDOCAINE 2%/EPI 1:100,000 20 ML VIAL. ×2 (09:28)
[2017-02-20] MEDS ORDERED: NEOSTIGMINE METHYLSULFATE 5 MG/5 ML SYRINGE. ×2 (09:32)
[2017-02-20] MEDS ORDERED: GLYCOPYRROLATE 1 MG/5 ML VIAL. ×2 (09:32)
[2017-02-20] MEDS ORDERED: PHENYLEPHRINE in 0.9% NACL PF 1 MG/10 ML SYRINGE. IV (09:33)
[2017-02-20] MEDS ORDERED: PROPOFOL 50 ML IV ×2 (09:33)
[2017-02-20] MEDS ORDERED: LABETALOL 20 MG/4 ML DISP.SYRIN. ×2 (09:34)
[2017-02-20] MEDS ORDERED: DESFLURANE > 120 MINUTES IH ×2 (10:23)
[2017-02-20] MEDS ORDERED: 0.9 % SODIUM CHLORIDE 10 ML DISP.SYRIN. IV ×2 (11:45)
[2017-02-20] MEDS ORDERED: CALCIUM CARBONATE 500 MG TAB.CHEW PO ×2 (11:45)
[2017-02-20] MEDS ORDERED: NALOXONE 0.4 MG/ML VIAL. IV ×2 (11:45)
[2017-02-20] MEDS ORDERED: fentaNYL PF VIAL 100 MCG/2 ML VIAL IV ×2 (11:45)
[2017-02-20] MEDS ORDERED: diphenhydrAMINE HCL 25 MG CAPSULE PO ×2 (11:45)
[2017-02-20] MEDS ORDERED: oxyCODONE/APAP 5/325 1 TAB TABLET PO ×2 (11:45)
[2017-02-20] MEDS ORDERED: diphenhydrAMINE 50 MG/ML VIAL IV ×2 (11:45)
[2017-02-20] MEDS ORDERED: ACETAMINOPHEN 325 MG TABLET. PO ×2 (11:45)
[2017-02-20] MEDS ORDERED: MAG HYDROX/ALUMINUM HYD/SIMETH 30 ML ORAL.SUSP PO ×2 (11:45)
[2017-02-20] MEDS ORDERED: MAGNESIUM HYDROXIDE 2,400 MG/30 ML ORAL.SUSP. PO ×2 (11:45)
[2017-02-20] MEDS ORDERED: ONDANSETRON PF 4 MG/2 ML VIAL. IV ×2 (11:45)
[2017-02-20] MEDS ORDERED: ceFAZolin 2GM PREMIX 2 GM/50 ML BAG IV ×2 (12:00)
[2017-02-20] MEDS: fentaNYL PF VIAL 100 MCG/2 ML VIAL IV ×12 (12:14→20:59)
[2017-02-20] MEDS ORDERED: ALBUTEROL SULFATE 2.5 MG/3 ML NEBU. NEB ×2 (12:15)
[2017-02-20] MEDS: MORPHINE SULFATE 2 MG/ML DISP.SYRIN. IV ×8 (12:36→13:17)
[2017-02-20] MEDS: IV RINGERS,LACTATED 1000ML 1,000 ML IV ×2 (12:58)
[2017-02-20] MEDS: METHOCARBAMOL 750 MG TABLET PO ×4 (13:46→21:04)
[2017-02-20] MEDS: oxyCODONE IR 5 MG TABLET PO ×6 (13:46→22:30)
[2017-02-20] MEDS: oxyCODONE/APAP 5/325 1 TAB TABLET PO ×4 (16:17→19:49)
[2017-02-20] MEDS: CALCIUM CARB/VIT D3 500/200 TABLET. PO ×2 (17:55)
[2017-02-20] MEDS: FERROUS SULFATE 325 MG TABLET. PO ×2 (17:55)
[2017-02-20] MEDS: ESTRADIOL TD ×2 (18:00)
[2017-02-20] MEDS: LISINOPRIL 2.5 MG TABLET PO ×2 (18:26)
[2017-02-20] MEDS: cloNIDine HCL 0.1 MG TABLET PO ×2 (18:27)
[2017-02-20] MEDS: SENNOSIDES/DOCUSATE 8.6/50MG TABLET. PO ×2 (21:00)
[2017-02-20] MEDS: ZOLPIDEM 5 MG TABLET. PO ×4 (21:03→22:30)
[2017-02-20] MEDS: DOCUSATE SODIUM 100 MG CAPSULE. PO ×2 (21:04)
[2017-02-20] MEDS: PREGABALIN 50 MG CAPSULE PO ×2 (21:04)
[2017-02-21] MEDS: oxyCODONE/APAP 5/325 1 TAB TABLET PO ×4 (01:00→07:17)
[2017-02-21] MEDS: oxyCODONE IR 5 MG TABLET PO ×6 (03:57→18:20)
[2017-02-21] MEDS: LEVOTHYROXINE 25 MCG TABLET. PO ×2 (07:19)
[2017-02-21] MEDS: FERROUS SULFATE 325 MG TABLET. PO ×4 (08:52→17:24)
[2017-02-21] MEDS: SENNOSIDES/DOCUSATE 8.6/50MG TABLET. PO ×4 (08:52→21:00)
[2017-02-21] MEDS: CALCIUM CARB/VIT D3 500/200 TABLET. PO ×4 (08:52→17:24)
[2017-02-21] MEDS: PREGABALIN 50 MG CAPSULE PO ×4 (08:52→21:17)
[2017-02-21] MEDS: DOCUSATE SODIUM 100 MG CAPSULE. PO ×4 (08:52→21:16)
[2017-02-21] MEDS: amLODIPine BESYLATE 5 MG TABLET PO ×2 (08:52)
[2017-02-21] MEDS: MULTIVITAMIN with MINERAL TABLET. PO ×2 (08:53)
[2017-02-21] MEDS: LISINOPRIL 2.5 MG TABLET PO ×2 (08:53)
[2017-02-21] MEDS: LOSARTAN POTASSIUM 50 MG TABLET. PO ×2 (08:54)
[2017-02-21] MEDS: METHOCARBAMOL 750 MG TABLET PO ×6 (08:54→21:16)
[2017-02-21] MEDS ORDERED: oxyCODONE/APAP 7.5/325 1 TAB TABLET PO ×4 (11:30→11:45)
[2017-02-21] MEDS: oxyCODONE/APAP 7.5/325 1 TAB TABLET PO ×6 (11:37→21:17)
[2017-02-21 12:30] LABS: ADD MAN DIFF? NO
[2017-02-21 12:33] LABS: BASO # 0.1 x10^3/uL (0.0-0.2); BASO % 1 % (0-3); EOS % 0 % (0-3); HEMATOCRIT 38.3 % (36.0-47.0); LYMPH # 1.9 x10^3/uL (1.0-4.8); LYMPH % 13 % (24-48); MEAN CORPUSCULAR HEMOGLOBIN 31 pg (25-35); MEAN CORPUSCULAR HGB CONC 34 g/dL (31-37); MEAN CORPUSCULAR VOLUME 92 fL (79-100); MONO % 7 % (0-9); NEUT # 11.4 x10^3uL (1.8-7.7); NEUT % 79 % (31-73); PLATELET COUNT 267 x10^3/uL (140-400); RED BLOOD COUNT 4.17 x10^6/uL (3.50-5.40); RED CELL DISTRIBUTION WIDTH 13.4 % (11.5-14.5); WHITE BLOOD COUNT 14.4 x10^3/uL (4.0-11.0)
[2017-02-21 13:01] LABS: ALBUMIN 3.6 g/dL (3.4-5.0); ALBUMIN/GLOBULIN RATIO 0.9 (1.0-1.7); ALK PHOS 82 U/L (46-116); ALT (SGPT) 37 U/L (14-59); ANION GAP 10 (6-14); AST (SGOT) 22 U/L (15-37); BLOOD UREA NITROGEN 11 mg/dL (7-20); BUN/CREATININE RATIO 16 (6-20); CALCIUM 9.1 mg/dL (8.5-10.1); CARBON DIOXIDE 26 mmol/L (21-32); CHLORIDE 102 mmol/L (98-107); CREATININE 0.7 mg/dL (0.6-1.0); GFR 108.1; GLUCOSE 138 mg/dL (70-99); POTASSIUM 3.5 mmol/L (3.5-5.1); SODIUM 138 mmol/L (136-145); TOTAL BILIRUBIN 0.4 mg/dL (0.2-1.0); TOTAL PROTEIN 7.7 g/dL (6.4-8.2)
[2017-02-21 13:06] LABS: FREE T4 0.93 ng/dL (0.76-1.46)
[2017-02-21 13:33] LABS: BILIRUBIN,URINE NEGATIVE (NEG); CLARITY,URINE CLEAR; COLOR,URINE YELLOW; GLUCOSE,URINE NEGATIVE (NEG); NITRITE,URINE NEGATIVE (NEG); PROTEIN,URINE NEGATIVE (NEG-TRACE); UROBILINOGEN,URINE 0.2 mg/dL (0.2 mg/dL)
[2017-02-21 13:47] LABS: BACTERIA,URINE 0 /HPF (0-FEW); SQUAMOUS EPITHELIAL CELL,UR MOD /LPF; WBC,URINE 0 /HPF (0-4)
[2017-02-21] MEDS: cloNIDine TTS-2 1 PATCH PATCH TD ×2 (13:49)
[2017-02-21] MEDS: ZOLPIDEM 5 MG TABLET. PO ×2 (21:16)
[2017-02-22] MEDS: oxyCODONE IR 5 MG TABLET PO ×4 (00:18→12:12)
[2017-02-22] MEDS: ZOLPIDEM 5 MG TABLET. PO ×2 (00:18)
[2017-02-22] MEDS: LEVOTHYROXINE 25 MCG TABLET. PO ×2 (06:02)
[2017-02-22] MEDS: oxyCODONE/APAP 7.5/325 1 TAB TABLET PO ×6 (06:03→14:47)
[2017-02-22] MEDS: FERROUS SULFATE 325 MG TABLET. PO ×2 (08:00)
[2017-02-22] MEDS: CALCIUM CARB/VIT D3 500/200 TABLET. PO ×2 (08:00)
[2017-02-22] MEDS: METOPROLOL SUCC 24HR ER 50 MG TAB.ER.24H. PO ×2 (08:49)
[2017-02-22] MEDS: LOSARTAN POTASSIUM 50 MG TABLET. PO ×2 (08:50)
[2017-02-22] MEDS: METHOCARBAMOL 750 MG TABLET PO ×4 (08:50→13:40)
[2017-02-22] MEDS: LISINOPRIL 2.5 MG TABLET PO ×2 (08:50)
[2017-02-22] MEDS: SENNOSIDES/DOCUSATE 8.6/50MG TABLET. PO ×2 (08:50)
[2017-02-22] MEDS: MULTIVITAMIN with MINERAL TABLET. PO ×2 (08:50)
[2017-02-22] MEDS: PREGABALIN 50 MG CAPSULE PO ×2 (08:50)
[2017-02-22] MEDS: amLODIPine BESYLATE 5 MG TABLET PO ×2 (08:50)
[2017-02-22] MEDS: DOCUSATE SODIUM 100 MG CAPSULE. PO ×2 (08:50)
[2017-02-22] MEDS ORDERED: METOPROLOL SUCC 24HR ER 50 MG TAB.ER.24H. PO ×2 (09:00)
[2017-02-22 12:19] LABS: ACTH 3.3 pg/mL (7.2-63.3)
[2017-03-01 17:14] LABS: ALDOSTERONE UR RANDOM 3.07 ug/L (Not Estab.)
== END 2017-02-22 16:28 | disposition home or self-care (01) ==
LOC: SURG 07:01 → 4 SOUTHEST 11:37
DX: M54.16 Radiculopathy, lumbar region (principal); E03.9 Hypothyroidism, unspecified; E66.01 Morbid (severe) obesity due to excess calories; I10 Essential (primary) hypertension; G47.33 Obstructive sleep apnea (adult) (pediatric); J45.909 Unspecified asthma, uncomplicated; Z82.49 Family history of ischemic heart disease and other diseases of the circulatory system; Z87.11 Personal history of peptic ulcer disease
CPT/HCPCS: 36415; 76000; 80053; 81001; 82024; 82088; 84439; 85025; 88304; 96374; 96376; 97110-GP; 97116-GP; 97162-GP; 97165-GO; 97530-GP; G0378; G0379; G8978-CJ-GP; G8979-CI-GP; G8980-CI-GP; J0330; J0690; J1100; J2250; J2270; J2370; J2405; J2704; J2710; J3010; J3490; J7030; J7120

== ENCOUNTER → 2017-04-04 | Outpatient (CLI) | payer MEDICARE | END | disposition home or self-care (01) | LOC: RAD 12:01 | DX: J45.909 Unspecified asthma, uncomplicated (principal) | CPT/HCPCS: 71046 ==

== ENCOUNTER → 2017-05-14 | Outpatient (CLI) | payer MEDICARE | END | disposition home or self-care (01) | LOC: SLPLAB 18:13 | DX: G47.10 Hypersomnia, unspecified (principal); R06.83 Snoring | CPT/HCPCS: 95810 ==

== ENCOUNTER → 2017-06-19 | Outpatient (CLI) | payer MEDICARE | END | disposition home or self-care (01) | LOC: KCIC MRI 10:32 | DX: M51.17 Intervertebral disc disorders with radiculopathy, lumbosacral region (principal); M48.061 Spinal stenosis, lumbar region without neurogenic claudication | CPT/HCPCS: 72148 ==

== ENCOUNTER 2017-11-07 08:15 | Emergency (ER) | payer MEDICARE ==
[~2017-11-07] VITALS: Ht 160 cm; Wt 106.8 kg
[~2017-11-07 08:15] MED LIST changes: +ACET325T9 PO; +AMLO10TA4 PO; +CALC1TAB70 PO; +CLON1PAT2 TD; +CYCL10TA2 PO; -DEXAMETHASONE SOD PHOS 20 MG/5 ML VIAL.; +ESTR1PAT TD; +ESTR42.53 VG; +FERR325T72 PO; +GABA-586 PO; -GELATIN SPONGE SIZE 100.; -HYDROmorphone 2 MG/ML VIAL IV; +LEVO50TA5 PO; -LIDOCAINE 1% PF 2 ML VIAL. ID; -LIDOCAINE 2% PF Vial for OR 5 ML VIAL.; +LISI2.5T PO; +METH-38 PO; +METH750T2 PO; +METO50TA29 PO; +MULT1TAB90 PO; +OMEP20CA9 PO; -ONDANSETRON PF 4 MG/2 ML VIAL.; -ONDANSETRON PF 4 MG/2 ML VIAL. IV; +OXYC-323 PO; +OXYC-411 PO; +OXYC10TA PO; +OXYC1TAB7 PO; +OXYC1TAB8 PO; +PREG100C PO; -PROCHLORPERAZINE 10 MG/2 ML VIAL. IV; -PROPOFOL 20 ML IV; +PROVENTIL HFA6.7 GM IH; -ROCURONIUM 50 MG/5 ML VIAL.; +SENN-22 PO; +SENN1TAB8 PO; +TAPE100T7 PO; -THROMBIN TOPICAL 20,000 UNIT SPRAY.SYRN KIT TP; +VALS160T3 PO; +ZOLP10TA PO; -fentaNYL PF VIAL 100 MCG/2 ML VIAL IV
[2017-11-07 08:49] LABS: BASO # 0.1 x10^3/uL (0.0-0.2); BASO % 1 % (0-3); EOS # 0.1 x10^3/uL (0.0-0.7); EOS % 1 % (0-3); HEMATOCRIT 40.3 % (36.0-47.0); HEMOGLOBIN 13.9 g/dL (12.0-15.5); LYMPH # 2.2 x10^3/uL (1.0-4.8); LYMPH % 37 % (24-48); MEAN CORPUSCULAR HEMOGLOBIN 32 pg (25-35); MEAN CORPUSCULAR HGB CONC 35 g/dL (31-37); MEAN CORPUSCULAR VOLUME 92 fL (79-100); MONO # 0.5 x10^3/uL (0.0-1.1); MONO % 9 % (0-9); NEUT % 51 % (31-73); PLATELET COUNT 315 x10^3/uL (140-400); RED BLOOD COUNT 4.41 x10^6/uL (3.50-5.40); RED CELL DISTRIBUTION WIDTH 13.8 % (11.5-14.5); WHITE BLOOD COUNT 5.9 x10^3/uL (4.0-11.0)
[2017-11-07 08:52] LABS: BILIRUBIN,URINE NEGATIVE (NEG); CLARITY,URINE CLEAR; COLOR,URINE YELLOW; NITRITE,URINE NEGATIVE (NEG); PH,URINE 5.5; PROTEIN,URINE NEGATIVE (NEG-TRACE); UROBILINOGEN,URINE 0.2 mg/dL (0.2 mg/dL)
--- NOTE | 2017-11-07 08:55 | PHYS DOC ---
Past Medical History Past Medical History: Asthma, Hypertension, Hypothyroid, Other Additional Past Medical Histor: chronic low back pain Past Surgical History: Cholecystectomy, , Tonsillectomy, Other Additional Past Surgical Histo: disectomy x 2 Alcohol Use: Occasionally Drug Use: None Adult General Chief Complaint Chief Complaint: ABDOMINAL PAIN HPI HPI Patient is a 46 year old female who presents to the ER for evaluation of right lower quadrant abdominal pain. Patient reports that pain has been present for proximal Lasix 8 months. Patient reports history of chronic right low back pain with known radiculopathy with radiation to right lower extremity and right lower quadrant abdominal area. Patient has undergone multiple MRIs of her back and has had multiple back surgeries. Patient denies any acute worsening of her abdominal pain or changes. I'm unable to elicit why patient felt that she needs to be evaluated emergently this morning. Patient reports pain is constant, sharp , 9 out of 10 at rest, patient reports that pain is significantly worse with movement. Patient reports some intermittent nausea/vomiting but this is also chronic in nature and its managing this at home with Zofran prescribed by her PCP. Patient also reports some chronic diarrhea. Patient reports last BM yesterday. Patient denies any GI bleed symptoms. Patient denies any fever. Patient status post hysterectomy and cholecystectomy but still has an appendix. Review of Systems Review of Systems Constitutional: Denies fever or chills [] Eyes: Denies change in visual acuity, redness, or eye pain [] HENT: Denies nasal congestion or sore throat [] Respiratory: Denies cough or shortness of breath [] Cardiovascular: No chest pain, no lower extremity edema, no orthopnea. GI: Abdominal pain present, nausea present, intermittent vomiting present, no bloody stools : Denies dysuria or hematuria [] Musculoskeletal: Denies back pain or joint pain [] Integument: Denies rash or skin lesions [] Neurologic: Denies headache, focal weakness or sensory changes [] Endocrine: Denies polyuria or polydipsia [] All other systems were reviewed and found to be within normal limits, except as documented in this note. Current Medications Current Medications Current Medications Medications (Trade) Dose Ordered Sig/Monique Start Time Stop Time Status Last Admin Dose Admin Iohexol (Omnipaque 300 Mg/ml) 75 ml 1X ONCE 11/07/17 09:00 11/07/17 09:01 DC 11/07/17 09:26 75 ML Oxycodone HCl (Roxicodone) 10 mg 1X ONCE 11/07/17 09:00 11/07/17 09:01 DC 11/07/17 09:55 10 MG Allergies Allergies Allergies Coded Allergies Type Severity Reaction Last Updated Verified Sulfa (Sulfonamide Antibiotics) Allergy Severe Shortness of Air 11/07/17 Yes celecoxib Allergy Severe Shortness of Air 11/07/17 Yes Physical Exam Physical Exam Constitutional: Morbidly obese, no acute distress, nontoxic appearing HENT: Normocephalic, atraumatic, Eyes: PERRLA, EOMI,[] Neck: e, no stridor. [] Cardiovascular:Heart rate regular rhythm, no murmur [] Lungs & Thorax: Bilateral breath sounds clear to auscultation [] Abdomen: Bowel sounds normal, soft, moderate right lower quadrant tenderness, no masses, no pulsatile masses. Exam limited by body habitus [] Skin: Warm, dry, no erythema, no rash. [] Back: No midline spinal tenderness Extremities: Range of motion of right lower extremity limited secondary to back pain. Lower extremity edema, bilateral DP pulses +2 out of 4 Neurologic: Alert and oriented X 3, , no focal deficits noted. [] Psychologic: Affect normal, judgement normal, mood normal. [] Current Patient Data Vital Signs Vital Signs Date Time Temp Pulse Resp B/P (MAP) Pulse Ox O2 Delivery O2 Flow Rate FiO2 11/07/17 09:55 18 98 Room Air 11/07/17 08:20 97.9 64 140/84 (102) 97.9 Lab Values Laboratory Tests Test 11/07/17 08:30 White Blood Count 5.9 x10^3/uL (4.0-11.0) Red Blood Count 4.41 x10^6/uL (3.50-5.40) Hemoglobin 13.9 g/dL (12.0-15.5) Hematocrit 40.3 % (36.0-47.0) Mean Corpuscular Volume 92 fL (79-100) Mean Corpuscular Hemoglobin 32 pg (25-35) Mean Corpuscular Hemoglobin Concent 35 g/dL (31-37) Red Cell Distribution Width 13.8 % (11.5-14.5) Platelet Count 315 x10^3/uL (140-400) Neutrophils (%) (Auto) 51 % (31-73) Lymphocytes (%) (Auto) 37 % (24-48) Monocytes (%) (Auto) 9 % (0-9) Eosinophils (%) (Auto) 1 % (0-3) Basophils (%) (Auto) 1 % (0-3) Neutrophils # (Auto) 3.0 x10^3uL (1.8-7.7) Lymphocytes # (Auto) 2.2 x10^3/uL (1.0-4.8) Monocytes # (Auto) 0.5 x10^3/uL (0.0-1.1) Eosinophils # (Auto) 0.1 x10^3/uL (0.0-0.7) Basophils # (Auto) 0.1 x10^3/uL (0.0-0.2) Urine Collection Type Void Urine Color Yellow Urine Clarity Clear Urine pH 5.5 Urine Specific Brodnax >=1.030 Urine Protein Negative mg/dL (NEG-TRACE) Urine Glucose (UA) Negative mg/dL (NEG) Urine Ketones (Stick) Negative mg/dL (NEG) Urine Blood Negative (NEG) Urine Nitrite Negative (NEG) Urine Bilirubin Negative (NEG) Urine Urobilinogen Dipstick 0.2 mg/dL (0.2 mg/dL) Urine Leukocyte Esterase Negative (NEG) Urine RBC 0 /HPF (0-2) Urine WBC 0 /HPF (0-4) Urine Squamous Epithelial Cells Mod /LPF Urine Bacteria 0 /HPF (0-FEW) Sodium Level 141 mmol/L (136-145) Potassium Level 3.6 mmol/L (3.5-5.1) Chloride Level 103 mmol/L (98-107) Carbon Dioxide Level 30 mmol/L (21-32) Anion Gap 8 (6-14) Blood Urea Nitrogen 15 mg/dL (7-20) Creatinine 0.7 mg/dL (0.6-1.0) Estimated GFR (Cockcroft-Gault) 108.1 Glucose Level 94 mg/dL (70-99) Calcium Level 9.4 mg/dL (8.5-10.1) Laboratory Tests 11/07/17 08:30 Laboratory Tests 11/07/17 08:30 EKG EKG [] Radiology/Procedures Radiology/Procedures []CT ABD/Pelvis Impression: No inflammatory changes involving the right lower quadrant. Appendix is normal. No acute process. Electronically signed by: Maximilian Farmer MD (11/07/2017 9:51 AM) [facility][] Course & Med Decision Making Course & Med Decision Making Pertinent Labs and Imaging studies reviewed. (See chart for details) 10:00 patient with reassuring ER evaluation including reassuring labs, urine, CT abdomen and pelvis. Discussed at length with patient and her spouse at bedside. Given the chronic nature of patient's symptoms advised continue close follow-up with her primary care physician and her back surgeon. Patient is on chronic narcotics and will allow her primary care doctor to continue to come management chronic pain. ER return precautions given. Patient verbalized understanding. All questions answered. Dragon Disclaimer Dragon Disclaimer This electronic medical record was generated, in whole or in part, using a voice recognition dictation system. Departure Departure Impression: Primary Impression: Lumbar radiculopathy Additional Impression: RLQ abdominal pain Disposition: HOME, SELF-CARE Condition: STABLE Referrals: SOL HEDRICK (PCP) Patient Instructions: Abdominal Pain Additional Instructions: Thank you for coming to [facility]. Please repeat the attached handouts. Please follow-up with your primary care physician. Return to the ER if your symptoms worsen or you have any other concerns. Problem Qualifiers NEFTALY CHAU DO Nov 07, 2017 08:55
[2017-11-07] MEDS ORDERED: IOHEXOL 300 MG/ML 100ML VIAL. IV ONE (09:00)
[2017-11-07] MEDS ORDERED: oxyCODONE IR 5 MG TABLET PO ONE (09:00)
[2017-11-07 09:01] LABS: CALCIUM 9.4 mg/dL (8.5-10.1); CREATININE 0.7 mg/dL (0.6-1.0); GFR 108.1; POTASSIUM 3.6 mmol/L (3.5-5.1)
[2017-11-07 09:04] LABS: BACTERIA,URINE 0 /HPF (0-FEW); RBC,URINE 0 /HPF (0-2); SQUAMOUS EPITHELIAL CELL,UR MOD /LPF; WBC,URINE 0 /HPF (0-4)
--- NOTE | 2017-11-07 09:55 | RAD ---
Examination: CT ABD PELV W/ IV CONTRST ONLY History: RLQ PAIN INJ 75ML OMNI 300 PREV SENT Comparison/Correlation: None Findings: Axial images of the abdomen and pelvis were obtained following 70 cc Omnipaque 300 IV. Sagittal and coronal reformatted images were provided. Visualized lung bases are clear. Cholecystectomy evident. Liver, spleen, pancreas, and adrenal glands are normal. Kidneys are normal. The appendix is normal. No ascites or pelvic free fluid. No extraluminal gas. L5-S1 degenerative space narrowing is present with concentric disc bulge. Urinary bladder is unremarkable. There are no enlarged abdominal or pelvic lymph nodes. Hysterectomy noted. There is no bowel obstruction. No inflammatory change identified to involve the bowel. No bowel obstruction. Bony structures are unremarkable for the patient's age. Suprapubic region is unremarkable. Impression: No inflammatory changes involving the right lower quadrant. Appendix is normal. No acute process. Electronically signed by: Maximilian Farmer MD (11/07/2017 9:51 AM) [facility]
[2017-11-07 10:30] VITALS: BP 137/79
== END 2017-11-07 10:34 | disposition home or self-care (01) ==
LOC: ER 08:15
DX: R10.31 Right lower quadrant pain (principal); M54.16 Radiculopathy, lumbar region; K52.9 Noninfective gastroenteritis and colitis, unspecified; R11.2 Nausea with vomiting, unspecified; E03.9 Hypothyroidism, unspecified; G89.29 Other chronic pain; I10 Essential (primary) hypertension; J45.909 Unspecified asthma, uncomplicated; Z90.49 Acquired absence of other specified parts of digestive tract; Z88.2 Allergy status to sulfonamides; Z88.8 Allergy status to other drugs, medicaments and biological substances
CPT/HCPCS: 36415; 74177; 80048; 81001; 85025; 99285; Q9967

== ENCOUNTER → 2018-11-10 | Outpatient (CLI) | payer MEDICARE, OTHER ==
[~2018-11-10] MED LIST changes: +ALBU2.5V8 IH; -CALC1TAB70 PO; +CALC1TAB72 PO; -CLON1PAT2 TD; +CLON1PAT6 TD; -GABA-586 PO; +GABA300C18 PO; +OMEP20CA10 PO; -OMEP20CA9 PO; -OXYC-323 PO; +OXYC1TAB15 PO; -PROVENTIL HFA6.7 GM IH; +SENN-161 PO; -SENN1TAB8 PO
--- NOTE | 2018-11-10 18:07 | KCIC ---
MRI of the cervical spine without contrast 11/10/2018 CLINICAL HISTORY: Neck pain and left hand numbness for one month. TECHNIQUE: Unenhanced T1-weighted, T2-weighted and inversion recovery sagittal and gradient echo and T2-weighted axial images of the cervical spine were obtained. FINDINGS: Mild lateral curvature of the cervical spine is seen convex to the right. There is straightening of the normal cervical lordosis. Degenerative signal changes are seen involving all of the disks of the cervical spine. Degenerative signal changes are seen within the marrow surrounding these discs. No area of abnormal signal intensity is seen involving the cervical spinal cord. At the C2-3 disc space there is a minimal generalized disc bulge. Degenerative changes are seen involving the uncovertebral and facet joints bilaterally. These findings do not result in significant central spinal canal or neural foraminal stenosis. At the C3-4 disc space there is a mild generalized disc bulge. Superimposed on this disc bulge is a central/left paracentral focal disc protrusion. This measures 3 mm in AP diameter. Degenerative changes are seen involving the uncovertebral and facet joints, left greater than right. These findings do not result in significant central spinal canal or neural foraminal stenosis. At the C4-5 disc space there is a mild generalized disc bulge. Superimposed on this disc bulge is a focal central disc protrusion. This measures 3 mm in AP diameter. Degenerative changes are seen involving the uncovertebral and facet joints bilaterally. These findings when combined do not result in significant central spinal canal or neural foraminal stenosis. At the C5-6 disc space there is a mild generalized disc bulge. This is eccentric to the right. Degenerative changes are seen involving the uncovertebral and facet joints, right greater than left. These findings when combined do not result in significant central spinal canal or neural foraminal stenosis. At the C6-7 disc space there is a mild generalized disc bulge. Degenerative changes are seen involving the uncovertebral and facet joints bilaterally. These findings when combined do not result in significant central spinal canal or neural foraminal stenosis. At the C7-T1 disc space there is a minimal generalized disc bulge. Degenerative changes are seen involving the facet joints bilaterally. These findings do not result in significant central spinal canal or neural foraminal stenosis. IMPRESSION: Degenerative changes are seen throughout the cervical spine. These findings do not result in significant central spinal canal or neural foraminal stenosis. Electronically signed by: Curt Kulkarni MD (11/10/2018 6:04 PM) [email or web address]
== END | disposition home or self-care (01) ==
LOC: KCIC MRI 13:18
DX: M47.892 Other spondylosis, cervical region (principal); M54.2 Cervicalgia; G56.93 Unspecified mononeuropathy of bilateral upper limbs
CPT/HCPCS: 72141

== ENCOUNTER → 2020-08-04 | Outpatient (CLI) | payer MEDICARE, OTHER ==
[~2020-08-04] MED LIST changes: -ALBU2.5V8 IH; +METH-562 PO; -METH750T2 PO; -MULT1TAB90 PO; +MULT1TAB92 PO; -OMEP20CA10 PO; +OMEP20CA16 PO; -OXYC-411 PO; +OXYC1TAB20 PO; +PROVENTIL HFA6.7 GM IH
--- NOTE | 2020-08-04 11:39 | KCIC ---
EXAM: Lumbar spine MRI without contrast. HISTORY: Spondylosis. TECHNIQUE: Multiplanar, multisequence magnetic resonance imaging of the lumbar spine was performed wi thout contrast. COMPARISON: 06/19/2017 FINDINGS: There is grade 1 anterolisthesis of L4 and L5 and L5 on S1, measuring 2 mm. There is degene rative endplate remodeling with disc space narrowing and disc desiccation at L5-S1. There is also sli ght disc desiccation at L4-L5. There are few osseous hemangiomas. There is no fracture or suspicious osseous lesion. The conus terminates at L2. At L1-L2, L2-L3 and L3-L4, there is no stenosis. At L4-L5, there is a minimal disc bulge and mild endplate remodeling. There is moderate right and mil d left facet arthropathy. There is minimal right foraminal stenosis. At L5-S1, there are left hemilaminectomy changes. There is a posterior central disc protrusion and le ft lateral recess to extra foraminal disc protrusion and osteophyte complex with 6 and superior extru stanislav superimposed on a disc bulge and left lateral predominant endplate osteophytosis. There is mild left facet arthropathy. There is severe left foraminal stenosis with effacement of the exiting left L 5 nerve root. IMPRESSION: 1. L5-S1: Slight interval increase in a left lateral recess to extra foraminal disc protrusion and os teophyte complex with superior extrusion superimposed on a disc bulge and left lateral predominant en dplate osteophytosis. This results in severe left foraminal stenosis and effacement of the exiting le ft L5 nerve root. There is also a small stable posterior central disc protrusion and there are hemila minectomy changes at this level. 2. Stable degenerative change at L4-L5, resulting in minimal right foraminal stenosis. Electronically signed by: Demi Bonilla MD (08/04/2020 11:37 AM) [email or web address]
== END ==
LOC: KCIC MRI 10:06
PROVIDERS: ATTEND Physician Assistant
DX: M51.27 Other intervertebral disc displacement, lumbosacral region (principal); M47.816 Spondylosis without myelopathy or radiculopathy, lumbar region; M25.78 Osteophyte, vertebrae; M48.061 Spinal stenosis, lumbar region without neurogenic claudication
CPT/HCPCS: 72148